=== PATIENT | female | born 1980 | race African-American/Black ===

== ENCOUNTER 2021-05-08 00:39 | Inpatient (IN) ==
[2021-05-08] MEDS ORDERED: SODIUM CHLORIDE 0.9% 1,000 ML IV STA ×2 (01:10→02:19)
[2021-05-08] MEDS ORDERED: INSULIN REGULAR 100 UNIT/ML IV STA (01:10)
[2021-05-08 01:34] LABS: Basophils # 0.1 10*3/uL (0.0-0.2); Basophils % 0.3 % (0.0-0.8); Hematocrit 47.1 VOL% (35.7-47.0); Hemoglobin 14.7 GM/DL (12.0-16.0); Immature Granulocytes % 1.5 %; Immature Granulocytes Absolute 0.24 #; Lymphocytes # 1.2 10*3/uL (1.4-4.0); Mean Corpuscular HGB Conc 31.2 GM/DL (32-36); Mean Corpuscular Volume 88.5 FL (87-102); Mean Platelet Volume 10.8 FL (9.6-12.0); Monocytes % 9.1 % (1.7-12.7); Neutrophils % 82.1 % (38.7-73.9); Platelet Count 395 T/CUMM (130-400); Red Blood Count 5.32 MC/CUMM (3.8-5.5); Red Cell Distribution Width 14.3 % (9.3-17.3); White Blood Count 16.5 T/CUMM (4-12)
[2021-05-08 01:41] LABS: Bilirubin,Urine Negative (Negative); Blood, Urine Small mg/dL (Negative); Glucose,Urine (UA) >=500 mg/dL (Negative); Ketones,Urine 80 mg/dL (Negative); Mucus,Urine Occasional /LPF (Occasional); Nitrite,Urine Negative (Negative); Protein,Urine Negative; Squamous Epithelial Cell,Urine Occasional /HPF (0-10); Urine Appearance CLEAR (Clear); Urine Color Colorless (Yellow); Urine Specific Gravity 1.026 (1.001-1.035); Urine Urobilinogen < 2.0 EU/DL (0.2-1.0)
[2021-05-08 01:45] LABS: INR 1.3
[2021-05-08 01:46] LABS: ABG Base Excess -24.1 MMOL/L (-2.5-2.5); ABG HCO3 8.5 MMOL/L (20-26); ABG Oxygen Saturation 97.7 % (95-100); ABG TCO2 3.9 MMOL/L (23-27); Allen Test Positive; Pt O2 Delivery Device Room Air
[2021-05-08 01:48] LABS: Barbiturates Screen,Urine Negative (Negative); Benzodiazepines Screen,Urine Negative (Negative); Cannabinoid Screen,Urine Negative (Negative); Opiate Screen,Urine Negative (Negative); Phencyclidine Screen,Urine Negative (Negative)
[2021-05-08 01:49] LABS: ABG PCO2 12.1 MM HG (35-48); ABG PH 7.162 (7.35-7.45)
[2021-05-08] MEDS ORDERED: SODIUM BICARBONATE 50 MEQ/50 ML VIAL IV STA (01:50)
[2021-05-08 02:00] LABS: Alanine Aminotransferase 29 U/L (13-56); Albumin 3.9 G/DL (3.4-5.0); Alkaline Phosphatase 142 U/L (45-117); Aspartate Amino Transferase 23 U/L (0-37); Blood Urea Nitrogen 14 MG/DL (7-18); Calcium 9.6 MG/DL (8.5-10.1); Carbon Dioxide 7 MMOL/L (21-32); Free T4 (Free Thyroxine) 1.05 NG/DL (0.76-1.46); Osmolality,Calculated 288.6 MOS/KG (273-304); Potassium 5.3 MMOL/L (3.5-5.1); Total Protein 9.6 G/DL (6.4-8.2)
[2021-05-08 02:01] LABS: Estimated Glom Filtration Rate 0 ML/MIN
[2021-05-08 02:02] LABS: Glucose 1029 MG/DL (74-106); Sodium 117 MMOL/L (136-145)
[2021-05-08] MEDS ORDERED: INSULIN REGULAR DRIP 100 ML IV PRN (02:05)
[2021-05-08] MEDS ORDERED: DEXTROSE 50% 25 GM/50 ML VIAL IV PRN ×2 (05:10)
[2021-05-08] MEDS ORDERED: MAGNESIUM SULF RIDER 4 GM/100 ML PREMIX IV PRN (05:10)
[2021-05-08] MEDS ORDERED: SODIUM BICARB INJ 100 MEQ in STERILE WATER INJ 400 ML IV PRN (05:10)
[2021-05-08] MEDS ORDERED: POTASSIUM CHLORIDE RIDER 10 MEQ/100 ML PREMIX IV PRN (05:10)
[2021-05-08] MEDS ORDERED: SODIUM PHOSPHATE IV PRN (05:10)
[2021-05-08] MEDS ORDERED: INSULIN REGULAR 100 UNIT/ML IV ONE (05:10)
[2021-05-08] MEDS ORDERED: SODIUM CHLORIDE 0.9% 1,000 ML IV ONE (05:10)
[2021-05-08] MEDS ORDERED: SODIUM CHLORIDE 0.9% IV PRN (05:10)
[2021-05-08] MEDS ORDERED: MAGNESIUM SULF RIDER 2 GM/50 ML PREMIX IV PRN (05:10)
[2021-05-08] MEDS: SODIUM CHLORIDE 0.9% 1,000 ML IV SCH ×2 (05:22→07:03)
[2021-05-08 05:42] LABS: ABG Base Excess -20.3 MMOL/L (-2.5-2.5); ABG HCO3 10.2 MMOL/L (20-26); ABG Oxygen Saturation 98.6 % (95-100); ABG TCO2 6.2 MMOL/L (23-27); Allen Test Positive
[2021-05-08] MEDS: INSULIN REGULAR DRIP 100 ML IV SCH (05:44)
[2021-05-08 05:46] LABS: ABG PCO2 18.2 MM HG (35-48); ABG PH 7.193 (7.35-7.45)
[2021-05-08 06:31] LABS: Calcium 9.1 MG/DL (8.5-10.1); Osmolality,Calculated 287.8 MOS/KG (273-304); Potassium 4.1 MMOL/L (3.5-5.1)
[2021-05-08] MEDS: POTASSIUM CHLORIDE INJ 20 MEQ in LACTATED RINGERS 1,000 ML IV SCH ×2 (08:28→10:37)
[2021-05-08] MEDS ORDERED: POTASSIUM CHLORIDE INJ 20 MEQ in LACTATED RINGERS 1,000 ML IV SCH ×2 (10:00→14:00)
[2021-05-08 10:15] LABS: Calcium 8.4 MG/DL (8.5-10.1); Osmolality,Calculated 287.8 MOS/KG (273-304); Potassium 5.3 MMOL/L (3.5-5.1)
[2021-05-08] MEDS ORDERED: SODIUM CHLORIDE 0.9% 1,000 ML IV SCH (10:30)
[2021-05-08 13:38] LABS: Calcium 8.2 MG/DL (8.5-10.1); Potassium 4.3 MMOL/L (3.5-5.1)
[2021-05-08] MEDS: FLUCONAZOLE 200 MG TABLET PO SCH (15:04)
[2021-05-08 18:05] LABS: Calcium 8.4 MG/DL (8.5-10.1); Osmolality,Calculated 284.4 MOS/KG (273-304)
[2021-05-08] MEDS: DEXT 5% LACT RING KCL 20 MEQ 20 MEQ/1,000 ML BAG IV SCH (18:05)
[2021-05-08 21:38] LABS: Calcium 8.2 MG/DL (8.5-10.1); Osmolality,Calculated 288.1 MOS/KG (273-304); Potassium 3.6 MMOL/L (3.5-5.1)
[2021-05-08] MEDS ORDERED: SODIUM CHLORIDE 0.45% 1,000 ML IV SCH (22:30)
[2021-05-09 01:43] LABS: Calcium 8.6 MG/DL (8.5-10.1); Potassium 3.2 MMOL/L (3.5-5.1)
[2021-05-09] MEDS: INSULIN REGULAR DRIP 100 ML IV SCH ×2 (02:10→07:06)
[2021-05-09] MEDS ORDERED: POTASSIUM CHLORIDE 20 MEQ TABLET PO ONE (02:38)
[2021-05-09] MEDS: DEXT 5% LACT RING KCL 20 MEQ 20 MEQ/1,000 ML BAG IV SCH ×3 (02:45→15:07)
[2021-05-09 04:21] LABS: Basophils % 0.1 % (0.0-0.8); Hematocrit 30.8 VOL% (35.7-47.0); Immature Granulocytes % 0.5 %; Immature Granulocytes Absolute 0.05 #; Lymphocytes # 1.2 10*3/uL (1.4-4.0); Lymphocytes % 11.1 % (21.3-54.2); Mean Corpuscular HGB Conc 33.8 GM/DL (32-36); Mean Corpuscular Volume 81.7 FL (87-102); Mean Platelet Volume 10.5 FL (9.6-12.0); Monocytes % 16.4 % (1.7-12.7); Neutrophils % 71.9 % (38.7-73.9)
[2021-05-09 04:22] LABS: Hemoglobin 10.4 GM/DL (12.0-16.0); Platelet Count 277 T/CUMM (130-400); Red Blood Count 3.77 MC/CUMM (3.8-5.5); White Blood Count 10.6 T/CUMM (4-12)
[2021-05-09 04:32] LABS: Calcium 8.4 MG/DL (8.5-10.1); Osmolality,Calculated 282.3 MOS/KG (273-304); Potassium 3.7 MMOL/L (3.5-5.1)
[2021-05-09 04:38] LABS: Eosinophils 1 % (0-10); Hypochromasia 1+; Lymphocytes 7 % (20-55); Microcytosis 1+; Platelet Estimate Adequate; Segmented Neutrophils 83 % (50-85); Total Cells Counted 100
[2021-05-09] MEDS: INSULIN LISPRO 100 UNIT/ML SUBCUT SCH ×4 (08:29→20:53)
[2021-05-09] MEDS: FLUCONAZOLE 200 MG TABLET PO SCH (08:29)
[2021-05-09] MEDS ORDERED: INSULIN GLARGINE 100 UNIT/ML SUBCUT SCH (09:00)
[2021-05-09] MEDS: DESITIN 4OZ/NYSTATIN 15 GRAM MIXTURE PASTE TOP SCH ×2 (10:31→21:07)
[2021-05-09] MEDS: PROPRANOLOL 40 MG TABLET PO SCH (15:06)
[2021-05-09] MEDS: POTASSIUM CHLORIDE 10 MEQ TABLET PO SCH (21:01)
[2021-05-09] MEDS: HALOPERIDOL 5 MG TABLET PO SCH (21:01)
[2021-05-10] MEDS: INSULIN LISPRO 100 UNIT/ML SUBCUT SCH ×7 (00:43→23:44)
[2021-05-10 05:50] LABS: Calcium 8.5 MG/DL (8.5-10.1); Osmolality,Calculated 279.7 MOS/KG (273-304); Potassium 3.5 MMOL/L (3.5-5.1)
[2021-05-10] MEDS ORDERED: POTASSIUM CHLORIDE 20 MEQ TABLET PO PRN (07:21)
[2021-05-10] MEDS: INSULIN GLARGINE 100 UNIT/ML SUBCUT SCH (09:20)
[2021-05-10] MEDS: PROPRANOLOL 40 MG TABLET PO SCH (09:21)
[2021-05-10] MEDS: FLUCONAZOLE 200 MG TABLET PO SCH (09:21)
[2021-05-10] MEDS: POTASSIUM CHLORIDE 10 MEQ TABLET PO SCH ×2 (09:21→20:44)
[2021-05-10] MEDS: HALOPERIDOL 5 MG TABLET PO SCH (09:21)
[2021-05-10] MEDS: hydroCHLOROthiazide 25 MG TABLET PO SCH (09:24)
[2021-05-10] MEDS: DESITIN 4OZ/NYSTATIN 15 GRAM MIXTURE PASTE TOP SCH ×2 (09:24→20:44)
[2021-05-10] MEDS: NON-FORMULARY MEDICATION (Cariprazine [Vraylar] 3 mg Capsule) PO SCH (15:10)
[2021-05-11] MEDS: INSULIN LISPRO 100 UNIT/ML SUBCUT SCH ×4 (05:07→17:20)
[2021-05-11 05:42] LABS: Calcium 8.8 MG/DL (8.5-10.1); Osmolality,Calculated 276.7 MOS/KG (273-304); Potassium 3.3 MMOL/L (3.5-5.1)
[2021-05-11] MEDS: INSULIN GLARGINE 100 UNIT/ML SUBCUT SCH (09:03)
[2021-05-11] MEDS: hydroCHLOROthiazide 25 MG TABLET PO SCH (09:03)
[2021-05-11] MEDS: PROPRANOLOL 40 MG TABLET PO SCH (09:03)
[2021-05-11] MEDS: POTASSIUM CHLORIDE 10 MEQ TABLET PO SCH (09:03)
[2021-05-11] MEDS: FLUCONAZOLE 200 MG TABLET PO SCH (09:03)
[2021-05-11] MEDS: DESITIN 4OZ/NYSTATIN 15 GRAM MIXTURE PASTE TOP SCH (09:04)
[2021-05-11] MEDS: NON-FORMULARY MEDICATION (Cariprazine [Vraylar] 3 mg Capsule) PO SCH (09:40)
[2021-05-11 11:00] VITALS: BP 87/64
[2021-05-11] MEDS ORDERED: LUMATEPERONE 42 MG PO SCH (13:00)
== END 2021-05-11 17:24 | disposition home or self-care (01) | DRG 638 ==
LOC: N.ED 00:39 → SUATTDRO 03:10 → N.EDINP 03:10 → N.ICU 04:17 → N.3E 05-10 22:15
PROVIDERS: ADMIT Internal Medicine; ATTEND Internal Medicine